=== PATIENT | female | born 1995 | race Caucasian/White ===

== ENCOUNTER 2021-10-06 12:54 | Emergency (ER) | payer OTHER ==
[~2021-10-06] VITALS: Ht 162.6 cm; Wt 92.5 kg
[2021-10-06] MEDS ORDERED: FLONASE ALLERG9.9 ML NASAL (19:06)
[2021-10-06] MEDS ORDERED: TUSNEL LIQUID178 ML PO (19:06)
[2021-10-06] MEDS ORDERED: DOLOGEN 325-11 EACH PO (19:06)
[2021-10-06] MEDS ORDERED: MEDROLPACK PO (19:06)
== END 2021-10-06 19:55 | disposition home or self-care (01) ==
LOC: ER 12:54
DX: J06.9 Acute upper respiratory infection, unspecified (principal); R09.81 Nasal congestion; B34.9 Viral infection, unspecified; Z11.52 Encounter for screening for COVID-19

== ENCOUNTER 2022-12-05 10:54 | Emergency (ER) | payer OTHER ==
[~2022-12-05] VITALS: Ht 165.1 cm; Wt 83.9 kg
[~2022-12-05 10:54] MED LIST: DOLOGEN 325-11 EACH PO; FLONASE ALLERG9.9 ML NASAL; MEDROLPACK PO; TUSNEL LIQUID178 ML PO
== END 2022-12-05 16:42 | disposition home or self-care (01) ==
LOC: ER 10:54
DX: J40 Bronchitis, not specified as acute or chronic (principal); Z20.822 Contact with and (suspected) exposure to COVID-19

== ENCOUNTER 2024-10-27 22:03 | Emergency (ER) | payer OTHER ==
[~2024-10-27] VITALS: Ht 162.6 cm; Wt 98.0 kg
[2024-10-27] MEDS ORDERED: KETOROLAC TROMETHAMINE 15 MG VIAL IM STA (22:57)
[2024-10-27] MEDS ORDERED: KETOROLAC TROMETHAMINE 30 MG VIAL ONE (23:10)
== END 2024-10-27 23:50 | disposition home or self-care (01) ==
LOC: ER 22:06
DX: S83.92XA Sprain of unspecified site of left knee, initial encounter (principal); X58.XXXA Exposure to other specified factors, initial encounter; Y93.K1 Activity, walking an animal; Y92.89 Other specified places as the place of occurrence of the external cause; Y99.9 Unspecified external cause status